=== PATIENT | female | born 1955 | race Caucasian/White ===

== ENCOUNTER → 2016-03-29 10:09 | Day surgery (SDC) | payer MEDICAID ==
--- NOTE | 2016-03-14 16:37 | HP ---
PREOP HISTORY AND PHYSICAL: DATE OF OFFICE VISIT: 03/14/16 DATE OF SURGERY: 03/29/16 ATTENDING SURGEON: Dr. Desmond Gaming. PROCEDURE: Right knee arthroscopic surgery, arthroscopic partial meniscectomy. CHIEF COMPLAINT: Right knee pain. HISTORY OF PRESENT ILLNESS: Mr. Medina is a 60-year-old female who presents to the clinic for ongoing right knee pain due to lateral meniscus tear. The patient has failed conservative measures and therefore has agreed to undergo a right knee arthroscopic partial meniscectomy with Dr. Gaming on 03/29/16. PAST MEDICAL HISTORY: 1. Hypertension. 2. Arthritis. 3. Diabetes type 2. 4. GERD. 5. Hypothyroidism. 6. Fibromyalgia. 7. Rheumatoid arthritis. PAST SURGICAL HISTORY: 1. Tonsillectomy. 2. Hysterectomy. 3. Hammer toe. The patient denies problems with anesthesia before. MEDICATIONS: 1. Atenolol 50 mg 1 by mouth daily. 2. Triamterene hydrochlorothiazide 37.5/25 mg 1 by mouth daily. 3. Levothyroxine sodium 88 mcg 1 by mouth daily. 4. Cyclobenzaprine HCL 10 mg 1 by mouth 3 times a day as needed. 5. Trazodone HCL 50 mg 1 tabs at bedtime as needed. 6. Janumet mg take 1 by mouth twice a day. 7. Ibuprofen 800 mg by mouth 3 times a day as needed. 8. Ferrous sulfate 325 mg by mouth everyday. 9. once a day by mouth. 10. Vitamin B12 1000 mcg 1 by mouth every day. 11. Effexor XR 150 mg 1 by mouth daily. 12. Docusate sodium 100 mg 1 by mouth twice a day. ALLERGIES: AMPICILLIN, PLAQUENIL, and CELEBREX. FAMILY HISTORY: Mom with diabetes, high blood pressure, and stroke. Father with a history of lung cancer. No family history of DVT or PE. SOCIAL HISTORY: Lives with spouse. 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 She denies tobacco, alcohol, or illegal drug use. REVIEW OF SYSTEMS: A 14-point review of systems was reviewed with the patient, positive for hypertension, GERD, diabetes, hypothyroidism, and numbness in her hands from arthritis; otherwise negative. The patient denies history of DVT or PE. PHYSICAL EXAMINATION GENERAL: A well-developed, well-nourished 60-year-old female in no acute distress. VITAL SIGNS: Height 67, weight 245, pulse 82, blood pressure 142/95, respiratory rate 19, and BMI 38.4 HEENT: Normocephalic and atraumatic. PERRLA. NECK: Supple. Throat clear. PULMONARY: Lungs clear to auscultation bilaterally. No wheezing, rhonchi, or rales. CARDIO: Regular rate and rhythm. S1 and S2. No murmurs, gallops, or rubs. No edema. ABDOMEN: Positive bowel sounds, soft, nontender. NEURO: Alert and oriented x3. Cranial nerves are grossly intact. MUSCULOSKELETAL: Right knee moderate effusion, medial joint line and lateral joint line tenderness especially laterally. Range of motion from 2 to 120 degrees. Positive Saumya's. Stable to varus and valgus stress. The calf is soft and nontender. +2 dorsalis pedis pulse. Sensation intact to light touch distally. STUDIES: MRI revealed mild patellofemoral arthritis, a small lateral meniscal tear, presence of a popliteal cyst, and a moderate sized cartilage lesion of the lateral knee. IMPRESSION: Right knee lateral meniscus tear. PLAN: The patient is scheduled to undergo a right knee arthroscopic surgery, arthroscopic partial meniscectomy with Dr. Gaming on 03/29/16. She will return to the office 10 to 14 days postop for followup and suture removal. A prescription for Percocet was prescribed to the patient's pharmacy for postoperative pain management. She was also instructed to have a stool softener at home for opioid induced constipation. The patient has seen her PCP and has been cleared for surgery. CARMELINA OROZCO [id number]/[facility] #: [id number] [facility] HEALTH SYSTEMLoulou
[~2016-03-29 10:09] MED LIST: Buffered Lidocaine 1% SYR 3ML* 3 ML/SYR SYRINGE INTRADERM ONE; Bupivacaine 0.25% EPI 200,000* 30 ML SDV ONE; Bupivacaine 0.25% SDV* 30 ML ONE; Dexamethasone IV* 4 MG/ML 1 ML (4 MG) IV SLOW PU ONE; Dexamethasone IV* 4 MG/ML 1 ML (4 MG) ONE; DiMENhydriNATE IV* 50 MG/ML VIAL IV PUSH PRN; Famotidine IV* 10 MG/ML 2 ML (20 mg) IV ONE; Famotidine IV* 10 MG/ML 2 ML (20 mg) ONE; HYDROmorphone INJ* 1 MG/ML CARPUJECT SYRINGE IV PRN; Ketorolac INJ* 30 MG/ML 1 ML VIAL ONE; Lidocaine 2% PF * 5 ML VIAL ONE; Midazolam* 1 MG/ML 2 ML VIAL (2 MG) ONE; Ondansetron INJ* 2 MG/ML VIAL IV PRN; Ondansetron INJ* 2 MG/ML VIAL ONE; PROCHLORPERAZINE INJ 5 MG/ML 2 ML VIAL IV PRN; Propofol* 10 MG/ML 20 ML BTL IV PUSH ONE; ceFAZolin 2 GM PREMIX (*) 0 GM/0 ML BAG IVPB ONE; ceFAZolin 2 GM PREMIX (*) 2 GM/50 ML BAG IVPB ONE; fentaNYL* 50 MCG/ML 2 ML VIAL (100 MCG VIAL) IV PRN; fentaNYL* 50 MCG/ML 2 ML VIAL (100 MCG VIAL) ONE; methylPREDNISolone ACETATE 80* 80 MG/ML 1 ML VIAL ONE
[2016-03-29 13:48] VITALS: BP 110/84
--- NOTE | 2016-03-30 07:41 | OP ---
DATE OF OPERATION: 03/29/16 [facility] DATE OF : 55 SURGEON: Desmond Gaming MD MANAGER PUBLIC: CARMELINA Mi ANESTHESIOLOGIST: Dr. Lee Guzman. ANESTHESIA: General. PRE-OP DIAGNOSIS: Right knee lateral meniscus tear, osteoarthritis. POST-OP DIAGNOSIS: Right knee lateral meniscus tear, osteoarthritis. OPERATIVE PROCEDURE: Right knee arthroscopy with chondroplasty of all 3 compartments, plica excision, partial lateral meniscectomy as well as injection of Depo-Medrol. COMPLICATIONS: None. ESTIMATED BLOOD LOSS: Minimal. INDICATIONS: Farida Medina is a 60-year-old female who presents with right knee pain refractory to conservative management including physical therapy and injections and she is aware that she has arthritis and that arthroscopy may not take away all of her symptoms, but she has persistent pain as well as mechanical symptoms with catching of the knee. Risks and benefits were discussed at length and include but are not limited to bleeding, infection, damage to nerves, vessels, surrounding structures, wound nonhealing, persistent pain, need for further surgery, risks of anesthesia, incomplete relief of symptoms, and risk of DVT. DESCRIPTION OF PROCEDURE: The patient was greeted in the preoperative area by the attending surgeon. The correct extremity was marked and the consent confirmed. The patient was then brought back to the operating suite where she was placed in the supine position on the operating table. She then underwent general anesthesia with LMA intubation which she tolerated without difficulty. The right leg was then examined. She had a moderate effusion and both anterior as well as posterior popliteal cysts. An unsterile tourniquet was placed on the proximal thigh and lateral post was placed. After miniature surgical pause , the right knee was intra- articularly injected with 0.25% of Marcaine with epi. The right leg was then prepped and draped in the usual sterile fashion with chlorhexidine soap and alcohol wipe followed by ChloraPrep. After appropriate surgical pause, indicating site, side, procedure, and administration of antibiotics, the anterolateral portal was made using the 11 blade. The scope was then introduced into the joint. The joint was examined and in the medial compartment, there was abundant synovitis anteriorly. The anterior medial portal was then made, using an 18-gauge for localization and the shaver was used to remove the abundant fat pad synovitis anteriorly. The scope was then brought into the medial compartment, there were grade 2 to 3 changes with unstable flaps in the medial compartment and this was then debrided back using a shaver, which exposed grade 3 to 4 lesions on the weightbearing surface approximately 1 cm x 1 cm. The medial meniscus was intact. The medial tibial plateau had grade 2 changes with unstable flaps. There was abundant large fat and plica that was apparent medially. This was then debrided back using the shaver with the knee in flexion as well as extension. After this was complete, the plica was removed, attention was directed to the lateral compartment. The knee was placed in a figure- of-four position and there was an unstable radial split tear. The shaver and the biters were used to debride the tissue. The meniscus quality was quite poor. The shaver was used to remove all excess debris. There was an unstable flap of the anterior horn that was also flapping in the joint and the shaver was used to remove that. There were grade 2 changes with unstable flaps in the lateral femoral condyle and grade 3 and 4 changes to the lateral tibial plateau. Chondroplasty was completed and all loose unstable tissue were removed. Then, the knee was placed in extension and the abundant fat pad was removed anteriorly. The patella was exposed. There was a small inferior spur. The patella has grade 0 to 2 changes. There were small unstable flaps, but the most of the cartilage was intact. Shaver was used to debride this back. The trochlea had grade 1 to 2 changes with unstable flaps. The gutters were examined and found to be clear. Once the chondroplasty and debridements were complete, all loose debris and fluid were removed from the joint. The portal sites were closed with 3-0 nylon. The knee was intra-articularly injected with 80 mg of Depo-Medrol and 0.25% Marcaine plain. Sterile dressings were applied as well as a Cryo/Cuff. She was awoken from anesthesia, transferred to PACU in stable condition. POSTOPERATIVE PLAN: She will be weightbearing as tolerated. She will be discharged on pain medication. DVT prophylaxis is discussed, but deferred due to no previous, personal, or family history. I will see the patient back in 10 to 14 days. [id number]/[facility] #: [id number] MIL[facility]
== END | disposition home or self-care (01) ==
LOC: OR 10:09
PROVIDERS: ATTEND Orthopaedic Surgery
DX: M23.200 Derangement of unspecified lateral meniscus due to old tear or injury, right knee (principal); M17.11 Unilateral primary osteoarthritis, right knee; E11.9 Type 2 diabetes mellitus without complications; I10 Essential (primary) hypertension; M06.9 Rheumatoid arthritis, unspecified; M65.861 Other synovitis and tenosynovitis, right lower leg
CPT/HCPCS: J0690; J1040; J1100; J1885; J2250; J2405; J2704; J3010

== ENCOUNTER 2016-11-13 08:06 | Day surgery (SDC) | payer OTHER ==
[~2016-11-13 08:06] MED LIST changes: +Buffered Lidocaine 0.9% SYRIN* 5 ML/SYR SYRINGE INTRADERM ONE; -Buffered Lidocaine 1% SYR 3ML* 3 ML/SYR SYRINGE INTRADERM ONE; -Bupivacaine 0.25% EPI 200,000* 30 ML SDV ONE; -Bupivacaine 0.25% SDV* 30 ML ONE; -Dexamethasone IV* 4 MG/ML 1 ML (4 MG) IV SLOW PU ONE; -Dexamethasone IV* 4 MG/ML 1 ML (4 MG) ONE; -DiMENhydriNATE IV* 50 MG/ML VIAL IV PUSH PRN; -HYDROmorphone INJ* 1 MG/ML CARPUJECT SYRINGE IV PRN; -Ketorolac INJ* 30 MG/ML 1 ML VIAL ONE; -Lidocaine 2% PF * 5 ML VIAL ONE; -Midazolam* 1 MG/ML 2 ML VIAL (2 MG) ONE; -Ondansetron INJ* 2 MG/ML VIAL IV PRN; -Ondansetron INJ* 2 MG/ML VIAL ONE; -PROCHLORPERAZINE INJ 5 MG/ML 2 ML VIAL IV PRN; -Propofol* 10 MG/ML 20 ML BTL IV PUSH ONE; -ceFAZolin 2 GM PREMIX (*) 0 GM/0 ML BAG IVPB ONE; -ceFAZolin 2 GM PREMIX (*) 2 GM/50 ML BAG IVPB ONE; -fentaNYL* 50 MCG/ML 2 ML VIAL (100 MCG VIAL) IV PRN; -fentaNYL* 50 MCG/ML 2 ML VIAL (100 MCG VIAL) ONE; -methylPREDNISolone ACETATE 80* 80 MG/ML 1 ML VIAL ONE
[2016-11-13] MEDS ORDERED: Midazolam* 1 MG/ML 5 ML VIAL (5 MG) ONE (08:14)
[2016-11-13] MEDS ORDERED: fentaNYL* 50 MCG/ML 2 ML VIAL (100 MCG VIAL) ONE (08:14)
[2016-11-13] MEDS ORDERED: Clindamycin 900 MG IVPREMIX(* 900 MG/50 ML SDV IV ONE (08:41)
[2016-11-13] MEDS ORDERED: Bupivacaine 0.25% SDV* 30 ML ONE (09:13)
[2016-11-13] MEDS ORDERED: DiMENhydriNATE IV* 50 MG/ML VIAL ONE (09:38)
[2016-11-13] MEDS ORDERED: Ketorolac INJ* 30 MG/ML 1 ML VIAL ONE (09:39)
[2016-11-13] MEDS ORDERED: Ondansetron INJ* 2 MG/ML VIAL ONE (09:39)
[2016-11-13] MEDS ORDERED: Propofol* 10 MG/ML 20 ML BTL IV PUSH ONE (09:39)
[2016-11-13] MEDS ORDERED: Lidocaine 2% PF * 5 ML VIAL ONE (09:39)
[2016-11-13] MEDS ORDERED: Dexamethasone IV* 4 MG/ML 1 ML (4 MG) ONE (09:39)
[2016-11-13] MEDS ORDERED: oxyCODONE/Acetamin 5/325 MG* TAB PO PRN (10:04)
[2016-11-13] MEDS ORDERED: DiMENhydriNATE IV* 50 MG/ML VIAL IV PUSH PRN (10:04)
[2016-11-13] MEDS ORDERED: HYDROmorphone INJ* 1 MG/ML CARPUJECT SYRINGE IV PRN (10:04)
[2016-11-13] MEDS ORDERED: methylPREDNISolone ACETATE 80* 80 MG/ML 1 ML VIAL ONE (10:22)
[2016-11-13] MEDS ORDERED: oxyCODONE/Acetamin 5/325 MG* TAB ONE (11:33)
[2016-11-13 12:14] VITALS: BP 142/87
--- NOTE | 2016-11-15 06:09 | OP ---
CC: PCP OPERATIVE REPORT: DATE OF OPERATION: 11/13/16 DATE OF : 55 ATTENDING SURGEON: Desmond Gaming MD TRUCK SAFETY INSPECTOR: CARMELINA Zacarias The research program assistant was needed for the entirety of the case to help with positioning, retraction and was utilized throughout all portions of the case. ANESTHESIOLOGIST: Dr. Mane. PRE-OP DIAGNOSIS: Right knee lateral meniscus tear and osteoarthritis POST-OP DIAGNOSES: Right knee lateral meniscus tear, lateral compartment chondrosis as well as synovitis. OPERATIVE PROCEDURE: Right knee arthroscopy with: 1. Chondroplasty to the medial femoral condyle, lateral compartment as well as patellofemoral joint. 2. Plica resection/synovectomy. 3. Partial lateral meniscectomy or subtotal lateral meniscectomy. COMPLICATIONS: None. ESTIMATED BLOOD LOSS: 15 cc. IMPLANTS: None. INDICATIONS: Farida Medina is a 61-year-old female with known lateral compartment osteoarthritis. She underwent a previous right knee arthroscopy with partial lateral meniscectomy. She had a reinjury with increased mechanical symptoms. She has failed conservative management including therapy. She was previously diagnosed with lateral compartment osteoarthritis, small medial femoral condyle defect, mild patellar osteoarthritis. We did talk about how she is a candidate for total knee replacement, but due to other issues and the fact that she responded well to the arthroscopy last time, she elected to proceed. Risks and benefits were discussed at length including, but not limited to bleeding, infection, damage to nerves, vessels, surrounding structures, the wound nonhealing, persistent pain, need for further surgery, scarring, stiffness, incomplete relief of symptoms, risk of DVT. She has elected to proceed. DESCRIPTION OF PROCEDURE: The patient was greeted in the preoperative area by the attending surgeon. The correct extremity was marked and consent was confirmed. The patient was then brought back to the operating suite where she was placed in supine position on the operating table. She then underwent general anesthesia and endotracheal intubation, after LMA intubation, after which the right leg was prepped and draped in usual sterile fashion. An nonsterile tourniquet was placed high on the proximal thigh in the lateral posterior position. The right leg was then prepped and draped in usual sterile fashion beginning with chlorhexidine soap, scrub, and alcohol wipe and a final prep of ChloraPrep. After appropriate surgical pause indicating side, site, procedure, and administration of antibiotics, the single lateral portal was made sharply with an 1 blade. The scope was introduced to the joint and joint was examined. There were areas of grade 1 to 2 changes at the patella with a mild amount of fraying. The medial compartment was examined and the previous femoral condyle region actually had been scarred, fiber cartilage there. There was some small area of fraying with grade 2 change. This was debrided back after the medial portal was made with the alycia. Medial meniscus was otherwise intact. Medial plateau had grade 1 to 2 changes. The ACL and PCL were intact. There was abundant erythema and hyperemia in the joint. There is a moderate plica scar tissue requiring synovectomy using electrocautery as well as the shaver. The attention was directed to the lateral compartment, which again had grade 3 changes and small areas of grade 4 changes unstable. There was unstable radial split tear, which appeared to be a new tear as it was not present in her previous surgery. Decision was made to remove as much of the offending tear. The meniscus clot and tissue was poor, was thick and tough, the biters and alycia were used to debride this. Hemostasis was obtained using the electrocautery on the right. Once the partial meniscectomy, synovectomy and chondroplasty were done, small chondroplasty of the lateral compartment was also done as well. Once the procedure was done, the joint was sterilely lavaged , the wounds were irrigated with sterile saline, and closed with 3-0 nylon. The knee was intra-articularly injected with 0.25% Marcaine with 80 mg of Depo, sterile dressings were applied, a Cryo/Cuff was applied . She was awoken up from anesthesia and transferred to the PACU in stable condition. POSTOPERATIVE PLAN: She will be weightbearing as tolerated. She will be on crutches for 3 to 5 days. She will be discharged on pain medications as well as antibiotics. I will see the patient back in 10 to 14 days. [id number]/[facility] #: [id number] [facility] HOSPITALLoulou
== END 2016-11-13 12:12 | disposition home or self-care (01) ==
LOC: OREAST 08:06
PROVIDERS: ATTEND Orthopaedic Surgery
DX: S83.281A Other tear of lateral meniscus, current injury, right knee, initial encounter (principal); M25.461 Effusion, right knee; M65.861 Other synovitis and tenosynovitis, right lower leg; X50.0XXA Overexertion from strenuous movement or load, initial encounter; Y93.9 Activity, unspecified; Y92.9 Unspecified place or not applicable; E11.9 Type 2 diabetes mellitus without complications; Z79.84 Long term (current) use of oral hypoglycemic drugs; I10 Essential (primary) hypertension; G47.33 Obstructive sleep apnea (adult) (pediatric); E03.9 Hypothyroidism, unspecified; D64.9 Anemia, unspecified
CPT/HCPCS: A9270-GY; J1040; J1100; J1240; J1885; J2250; J2405; J2704; J3010

== ENCOUNTER 2023-09-10 05:45 | Inpatient (IN) ==
[~2023-09-10 05:45] MED LIST changes: -Buffered Lidocaine 0.9% SYRIN* 5 ML/SYR SYRINGE INTRADERM ONE; -Famotidine IV* 10 MG/ML 2 ML (20 mg) IV ONE; -Famotidine IV* 10 MG/ML 2 ML (20 mg) ONE; +Naloxone 0.4 mg VIAL 0.4 mg/ml 1 ml VIAL IV PRN; +Ondansetron 4 mg VIAL 2 MG/ML 2 ml VIAL IV PRN
[2023-09-10] MEDS ORDERED: Chlorhexidine MOUTHWASH 0.12% 15 ML UDC ONE (06:17)
[2023-09-10] MEDS ORDERED: Ondansetron 4 mg VIAL 2 MG/ML 2 ml VIAL ONE (06:24)
[2023-09-10] MEDS ORDERED: Propofol 10 MG/ML 20 ML BTL ONE (06:24)
[2023-09-10] MEDS ORDERED: Rocuronium 50 mg VIAL 10 mg/ml 5 ml VIAL (50 mg) ONE (06:24)
[2023-09-10] MEDS ORDERED: Dexamethasone IV 4 MG/ML VIAL 1 ml VIAL ONE (06:24)
[2023-09-10] MEDS ORDERED: Midazolam 2 mg/2 ml VIAL 1 mg/ml 2 ml VIAL (2 mg) ONE ×2 (06:24→12:25)
[2023-09-10] MEDS ORDERED: fentaNYL 250 mcg/5 ml 50 MCG/ML 5 ml VIAL (250 MCG) ONE ×2 (06:24→08:21)
[2023-09-10] MEDS ORDERED: Lidocaine 2% PF 5 ML VIAL ONE (06:24)
[2023-09-10] MEDS ORDERED: ceFAZolin 2 GM in NS PREMIX 2 GM/100 ML BAG IVPB ONE (06:25)
[2023-09-10] MEDS ORDERED: Lidocaine 1% w EPI 1:100,000 MDV 20 ML VIAL ONE (06:44)
[2023-09-10] MEDS ORDERED: Thrombin 5,000 UNITS 1 APPLIC KIT - topical use - TOPICAL ONE ×2 (06:44→08:19)
[2023-09-10] MEDS ORDERED: ceFAZolin VIAL VIAL ONE (06:45)
[2023-09-10] MEDS ORDERED: HYDROmorphone 0.5 MG/0.5 ML SYRINGE ONE ×2 (09:43→10:30)
[2023-09-10] MEDS ORDERED: Calcium Carb (TUMS) 500 mg CHEW TAB PO PRN (11:26)
[2023-09-10] MEDS ORDERED: Benzocaine/Menthol LOZ MT PRN (11:26)
[2023-09-10] MEDS ORDERED: Morphine 2 MG/ML SYRINGE IV PRN (11:26)
[2023-09-10] MEDS ORDERED: Dextran 70/Hypromellose Tears Eye Drops 15 ml BTL (for Artificials Tears) BOTH EYES PRN (11:26)
[2023-09-10] MEDS ORDERED: Phenol 1.4% Throat Spray BTL MT PRN (11:26)
[2023-09-10] MEDS: Lactated Ringers 1000 ml BAG 1,000 ML IV SCH ×2 (11:35→14:15)
[2023-09-10] MEDS: Buffered Lidocaine 1% SYRIN 1 ml INTRADERM ONE (11:35)
[2023-09-10] MEDS ORDERED: fentaNYL 100 mcg/2 ml 50 MCG/ML VIAL ONE (11:41)
[2023-09-10] MEDS: fentaNYL 100 mcg/2 ml 50 MCG/ML VIAL IV PRN (11:45)
[2023-09-10] MEDS ORDERED: HYDROmorphone 1 MG/1 ML SYRINGE ONE (11:54)
[2023-09-10] MEDS: HYDROmorphone 1 MG/1 ML SYRINGE IV PRN (11:58)
[2023-09-10] MEDS ORDERED: KETAMINE HCL 10 MG/ML 20 ml VIAL (200 MG) ONE (12:15)
[2023-09-10] MEDS: Ketamine HCL 50 mg/ml 10 ml VIAL (500 MG) IV ONE (12:16)
[2023-09-10 12:28] LABS: Rapid COVID-19 Molecular Undetected (Undetected)
[2023-09-10] MEDS: Midazolam 2 mg/2 ml VIAL 1 mg/ml 2 ml VIAL (2 mg) IV SLOW PU ONE (12:28)
[2023-09-10] MEDS: oxyCODONE SR 10 mg TAB PO SCH (20:51)
[2023-09-10] MEDS ORDERED: Insulin GLARGINE 100 un/ml 10 ml VIAL SUBCUT SCH (21:00)
[2023-09-10] MEDS: CMC:Mirabegron 25 mg ER TAB (NF) PO SCH (21:19)
[2023-09-11] MEDS: HYDROmorphone 1 MG/1 ML SYRINGE IV SLOW PU PRN (01:28)
[2023-09-11] MEDS: Ondansetron 4 mg VIAL 2 MG/ML 2 ml VIAL IV PRN (05:38)
[2023-09-12 06:22] VITALS: BP 147/81
== END 2023-09-12 10:20 | disposition home or self-care (01) | DRG 460 ==
LOC: OR 05:45 → SSU 11:26
PROVIDERS: ADMIT Neurological Surgery; ATTEND Neurological Surgery
PROC: O.NEPLF (2023-09-10 07:30)